=== PATIENT | male | born 1980 | race African-American/Black ===

== ENCOUNTER 2020-03-09 11:32 | Inpatient (IN) | payer OTHER ==
[2020-03-09 13:18] VITALS: BMI 24.3
[2020-03-09] MEDS ORDERED: MAGNESIUM HYDROX 2400MG/30ML ORAL SUSPENSION 30 ML CUP PO PRN (13:31)
[2020-03-09] MEDS ORDERED: MAGNESIUM CITRATE 300 ML BOTTLE PO PRN (13:31)
[2020-03-09] MEDS ORDERED: MAG HYDROX/AL HYDROX/SIMETH 30 ML UNIT-DOSE CUP PO PRN (13:31)
[2020-03-09] MEDS ORDERED: chlordiazePOXIDE HCL 25 MG CAPSULE PO PRN (13:31)
[2020-03-09] MEDS ORDERED: ONDANSETRON *ODT* 4 MG TABLET SL PRN (13:31)
[2020-03-09] MEDS ORDERED: BISMUTH SUBSALICYLATE 524 MG/30 ML UD PO PRN (13:31)
[2020-03-09] MEDS ORDERED: METHOCARBAMOL 500 MG TABLET PO PRN (13:31)
[2020-03-09] MEDS ORDERED: MENTHOL/PHENOL 1 EACH UD MM PRN (13:31)
[2020-03-09] MEDS ORDERED: IBUPROFEN 400 MG TABLET (FP) PO PRN (13:31)
[2020-03-09] MEDS ORDERED: ACETAMINOPHEN 325 MG TABLET (FP) PO PRN ×2 (13:31)
[2020-03-09] MEDS: hydrOXYzine PAMOATE 25 MG CAPSULE (FP) PO SCH ×3 (15:51→22:15)
[2020-03-09] MEDS: chlordiazePOXIDE HCL 25 MG CAPSULE PO SCH ×2 (17:15→22:16)
[2020-03-09 17:16] LABS: HEMATOCRIT 40.3 % (35.4-49); HEMOGLOBIN 13.9 GM/dL (11.7-16.9); MCH 35.5 pg (25.7-33.7); MCHC 34.6 g/dl (32.0-35.9); MEAN CELL VOLUME 102.8 fl (80-96); MEAN PLT VOLUME 9.4 fl (7.5-11.1); PLATELET COUNT 152 K/MM3 (134-434); RBC 3.92 M/mm3 (4.00-5.60); WHITE BLOOD COUNT 8.5 K/mm3 (4.0-10.0)
[2020-03-09 17:22] LABS: POTASSIUM 3.2 mmol/L (3.5-5.1)
[2020-03-09 17:27] LABS: BLOOD UREA NITROGEN 6.9 mg/dL (7-18)
[2020-03-09 17:30] LABS: CREATININE 0.9 mg/dL (0.55-1.3)
[2020-03-09 17:32] LABS: BILIRUBIN,TOTAL 0.4 mg/dL (0.2-1)
[2020-03-09 17:33] LABS: TOT PROT 7.5 g/dl (6.4-8.2)
[2020-03-09] MEDS: MELATONIN 5 MG TABLETS PO SCH (22:15)
[2020-03-09] MEDS: THIAMINE HCL 100 MG TABLET (FP) PO SCH (22:15)
[2020-03-10] MEDS: chlordiazePOXIDE HCL 25 MG CAPSULE PO SCH ×2 (05:19→10:17)
[2020-03-10] MEDS: hydrOXYzine PAMOATE 25 MG CAPSULE (FP) PO SCH ×5 (05:20→22:03)
[2020-03-10] MEDS: PRENATAL VITAMINS W/ FOLIC ACID TABLET (FP) PO SCH (10:17)
[2020-03-10] MEDS ORDERED: POTASSIUM CHLORIDE TABS 20 MEQ TABLET.ER (FP) PO ONE ×2 (11:33→17:00)
[2020-03-10] MEDS ORDERED: LORazepam 1 MG TABLET PO PRN (11:38)
[2020-03-10] MEDS ORDERED: LORazepam 2 MG TABLET PO PRN (17:00)
[2020-03-10] MEDS: THIAMINE HCL 100 MG TABLET (FP) PO SCH (22:03)
[2020-03-10] MEDS: MELATONIN 5 MG TABLETS PO SCH (22:03)
[2020-03-11] MEDS ORDERED: chlordiazePOXIDE HCL 25 MG CAPSULE PO SCH (05:00)
[2020-03-11] MEDS: LORazepam 1 MG TABLET PO SCH ×4 (05:32→21:59)
[2020-03-11] MEDS: hydrOXYzine PAMOATE 25 MG CAPSULE (FP) PO SCH ×6 (05:32→22:00)
[2020-03-11] MEDS: PRENATAL VITAMINS W/ FOLIC ACID TABLET (FP) PO SCH (10:08)
[2020-03-11 12:33] LABS: POTASSIUM 3.3 mmol/L (3.5-5.1)
[2020-03-11 12:38] LABS: BILIRUBIN,DIRECT 0.2 mg/dL (0.0-0.2)
[2020-03-11 12:42] LABS: ALBUMIN 3.8 g/dl (3.4-5.0); BILIRUBIN,TOTAL 0.7 mg/dL (0.2-1)
[2020-03-11] MEDS: MELATONIN 5 MG TABLETS PO SCH (21:59)
[2020-03-11] MEDS: THIAMINE HCL 100 MG TABLET (FP) PO SCH (22:00)
[2020-03-12] MEDS ORDERED: chlordiazePOXIDE HCL 10 MG CAPSULE PO PRN
[2020-03-12] MEDS ORDERED: chlordiazePOXIDE HCL 10 MG CAPSULE PO SCH (05:00)
[2020-03-12] MEDS: hydrOXYzine PAMOATE 25 MG CAPSULE (FP) PO SCH ×3 (05:11→14:00)
[2020-03-12] MEDS: LORazepam 0.5 MG TABLET PO SCH ×2 (05:11→10:05)
[2020-03-12] MEDS ORDERED: POTASSIUM CHLORIDE TABS 20 MEQ TABLET.ER (FP) PO SCH (10:00)
[2020-03-12] MEDS: PRENATAL VITAMINS W/ FOLIC ACID TABLET (FP) PO SCH (10:05)
[2020-03-12 12:11] LABS: POTASSIUM 3.5 mmol/L (3.5-5.1)
[2020-03-12 12:30] LABS: CALCIUM 9.5 mg/dL (8.5-10.1)
[2020-03-12 12:34] LABS: CREATININE 0.9 mg/dL (0.55-1.3)
[2020-03-12 13:38] VITALS: BP 113/74; PULSE 89; TEMP 98.3
[2020-03-13] MEDS ORDERED: LORazepam 0.5 MG TABLET PO PRN
[2020-03-13] MEDS ORDERED: chlordiazePOXIDE HCL 10 MG CAPSULE PO SCH (05:00)
[2020-03-13] MEDS ORDERED: LORazepam 0.5 MG TABLET PO ONE (05:00)
[2020-03-14] MEDS ORDERED: chlordiazePOXIDE HCL 10 MG CAPSULE PO ONE (05:00)
== END 2020-03-12 17:20 | disposition home or self-care (01) | DRG 775 ==
LOC: YASAS 11:32 → Y3N 14:14
PROVIDERS: ADMIT Allergy & Immunology; ATTEND Allergy & Immunology
PROC: HZ2ZZZZ Detoxification Services for Substance Abuse Treatment (ICD-10-PCS; principal; 2020-03-09)
DX: F10.230 Alcohol dependence with withdrawal, uncomplicated (principal); F12.20 Cannabis dependence, uncomplicated; E87.6 Hypokalemia; G47.00 Insomnia, unspecified; R74.8 Abnormal levels of other serum enzymes; R79.89 Other specified abnormal findings of blood chemistry; R76.11 Nonspecific reaction to tuberculin skin test without active tuberculosis; Z87.828 Personal history of other (healed) physical injury and trauma
CPT/HCPCS: 36415; 71045-TC-FY; 80048; 80053; 80076; 82306; 84132; 85027; 86780; C9803; U0003